=== PATIENT | male | born 1995 | race African-American/Black ===

== ENCOUNTER 2016-08-19 02:47 | Emergency (ER) | payer SELFPAY ==
[~2016-08-19] VITALS: Ht 177.8 cm; Wt 86.2 kg
[~2016-08-19 02:47] MED LIST: BACITRACIN15 GM TOPIC; BACTRIM DS TAB1 EAC1 ORAL; IBUPROFEN600 MG ORAL
[2016-08-19 03:05] VITALS: BP 119/69
--- NOTE | 2016-08-19 03:25 | Emergency Room Report ---
History of Present Illness General Chief Complaint: Skin Rash/Abscess Source: Patient Present Illness HPI This is a 20-year-old male who presents with a rash to his groin. Itchy. His been ongoing for couple weeks. He was looking online was worried as an STD. Denies any fever or chills. Denies any nausea vomiting no other complaint. No discharge Allergies: Coded Allergies: No Known Allergies (Unverified , 11/15/15) Patient History Past Medical History: see triage record, old chart reviewed Past Surgical History: none Pertinent Family History: none Social History: Denies: smoking Immunizations: other Reviewed Nursing Documentation: PMH: Agreed, PSxH: Agreed Review of Systems Eye: Denies: blurred vision, eye pain ENT: Denies: ear pain, nose congestion, throat swelling Respiratory: Denies: cough, shortness of breath Cardiovascular: Denies: chest pain, palpitations Gastrointestinal: Denies: abdominal pain, diarrhea, nausea, vomiting Musculoskeletal: Denies: back pain, joint pain Skin: Denies: rash Neurological: Denies: headache, numbness Endocrine: Denies: increased thirst, increased urine Hematologic/Lymphatic: Denies: easy bruising All Other Systems: negative except mentioned in HPI Physical Exam Vital Signs Date Time Temp Pulse Resp B/P Pulse Ox O2 Delivery O2 Flow Rate FiO2 08/19/16 02:49 98.2 66 18 119/69 100 Room Air vitals normal Sp02 EP Interpretation: reviewed, normal General Appearance: well appearing, no apparent distress, alert Head: normocephalic, atraumatic Eyes: bilateral eye EOMI, bilateral eye PERRL ENT: hearing grossly normal, normal pharynx Neck: full range of motion, supple, no meningismus Respiratory: chest non-tender, lungs clear, normal breath sounds Cardiovascular #1: regular rate, rhythm, no murmur Gastrointestinal: normal bowel sounds, non tender, no mass, no organomegaly, no bruit, non-distended Genitourinary: other - Penis normal. No testicular tenderness. In the groin area, he has rash consistent with tinea. Musculoskeletal: back normal, gait/station normal, normal range of motion Neurologic: alert, oriented x3 Psychiatric: mood/affect normal Skin: warm/dry Medical Decision Making Diagnostic Impression: Primary Impression: Tinea cruris ER Course Patient presents with tinea cruris. No evidence of STD. No evidence of cellulitis. We will discharge home with antifungal. Last Vital Signs Date Time Temp Pulse Resp B/P Pulse Ox O2 Delivery O2 Flow Rate FiO2 08/19/16 02:49 98.2 66 18 119/69 100 Room Air Status: improved Disposition: HOME, SELF-CARE Condition: Stable Scripts Nystatin/Triamcinolone (Nystatin-Triamcinolone Ointm) 15 Gm Oint...g. 1 APPLIC TOPIC TID, #30 GM Prov: CHRIS ADEN M.D. 08/19/16 Additional Instructions: Followup with your DrEliza in 7 days. Return if symptom worsen. CHRIS ADEN M.D. Aug 19, 2016 03:25
[2016-08-19] MEDS ORDERED: MYCOLOG OINT1 APPLIC TOPIC (03:30)
[2016-08-19 03:35] VITALS: BP 119/69
== END 2016-08-19 03:35 | disposition home or self-care (01) ==
LOC: EMR 03:11
DX: B35.6 Tinea cruris (principal)
CPT/HCPCS: 82962; 99283